=== PATIENT | female | born 1945 | race Caucasian/White ===

== ENCOUNTER → 2018-08-22 | Outpatient (CLI) | payer OTHER ==
--- NOTE | 2018-08-22 09:41 | US ---
EXAMINATION TYPE: US thyroid st tissue head/neck DATE OF EXAM: 08/22/2018 COMPARISON: NONE CLINICAL HISTORY: R59.0 ENLARGED LYMPH NODE. Pt states physician may have felt nodule/lump within nec k GLAND SIZE: Right Lobe: 4.5 x 1.3 x 1.6 cm Overall Parenchyma: homogenous Left Lobe: 5.0 x 1.2 x 1.1 cm Overall Parenchyma: homogeneous Isthmus Thickness: 0.2 cm Bilateral neck scanned, no evidence of lymphadenopathy. Thyroid gland is normal in size and fairly homogeneous in echotexture with diffuse vascularity and 2 3 mm colloid cysts identified in left thyroid lobe. IMPRESSION: Normal size homogeneous thyroid with few small left-sided nodules. No suspicious greater than 1 cm no dules or suspicious adjacent adenopathy identified.
--- NOTE | 2018-08-22 10:29 | BD ---
EXAMINATION TYPE: Axial Bone Density DATE OF EXAM: 08/22/2018 CLINICAL HISTORY: Disorder of bone per order. Height: 64.25 Weight: 165 FRAX RISK QUESTIONS: Alcohol (3 or more units per day): no Family History (Parent hip fracture): no Glucocorticoids (More than 3mos): no (Ex: prednisone, prednisolone, methylprednisolone, dexamethasone, and hydrocortisone). History of Fracture in Adulthood: yes, foot Secondary Osteoporosis: 1. Type 1 Diabetes: no 2. Hyperthyroidism: no 3. Menopause before 45: no 4. Malnutrition: no 5. Chronic liver disease: no Rheumatoid Arthritis: no Current Tobacco Use: no RISK FACTORS HISTORY OF: Family History of Osteoporosis: no Active: yes Diet low in dairy products/other sources of calcium: no Postmenopausal woman: yes Take estrogen and/or progesterone medications: no Lost more than 2 inches in height since high school: unsure, states may have been about 67 inches Frequent falls: no Poor Health: no Hyperparathyroidism: no Adrenal Insufficiency: no MEDICATIONS: Thyroid Medications: no Osteoporosis Medications: not now, stopped about 3 years Which medication: Fosamax How Long: unsure exactly Additional Medications: cholesterol med, calcium, D3 Additional History: EXAM MEASUREMENTS: Bone mineral densitometry was performed using the [employer] System. Bone mineral density as measured about the Lumbar spine is: ----- L1-L4(G/cm2): 1.044 T Score Values are as follows: ----- L2: -2.4 ----- L3: -1.5 ----- L4: 0.3 ----- L1-L4: -1.1 Bone mineral density not previously done at this facility; done elsewhere Bone mineral density about the R hip (g/cm2): 0.923 Bone mineral density about the L hip (g/cm2): 0.873 T Score values are as follows: -----R Neck: -0.8 -----L Neck: -1.2 -----R Total: -0.5 -----L Total: -1.0 Bone mineral density not previously done at this facility; done elsewhere IMPRESSION: Osteopenia (T Score between -2.5 and -1) overall in the low back and femoral neck level in the left h ip. There is slightly increased risk of fracture and the patient may be considered for treatment. Re-Screen 2-5 years. NOTE: T-SCORE=SD OF THE YOUNG ADULT MEAN.
--- NOTE | 2018-08-23 10:43 | MM ---
Reason for exam: screening (asymptomatic). History: Patient is postmenopausal. Family history of breast cancer in mother at age 70. Physical Findings: A clinical breast exam by your physician is recommended on an annual basis and results should be correlated with mammographic findings. MG Screening Mammo w CAD Bilateral CC and MLO view(s) were taken. No prior studies available for comparison. The breast tissue is heterogeneously dense. This may lower the sensitivity of mammography. Benign calcifications in the left breast. No significant changes when compared with prior studies. ASSESSMENT: Benign, BI-RAD 2 RECOMMENDATION: Routine screening mammogram of both breasts in 1 year.
== END ==
LOC: RADMAMWWP 07:15
PROVIDERS: ATTEND Family Medicine
DX: Z12.31 Encounter for screening mammogram for malignant neoplasm of breast (principal); M85.852 Other specified disorders of bone density and structure, left thigh; M85.88 Other specified disorders of bone density and structure, other site; R59.0 Localized enlarged lymph nodes
CPT/HCPCS: 76536; 77067; 77080

== ENCOUNTER → 2020-01-18 | Outpatient (CLI) | payer MEDICARE ==
--- NOTE | 2020-01-24 10:38 | MM ---
Reason for exam: screening (asymptomatic). Last mammogram was performed 1 year and 5 months ago. History: Patient is postmenopausal. Family history of breast cancer in mother at age 70. Physical Findings: A clinical breast exam by your physician is recommended on an annual basis and results should be correlated with mammographic findings. MG Screening Mammo w CAD Bilateral CC and MLO view(s) were taken. Prior study comparison: August 22, 2018, bilateral MG screening mammo w CAD. The breast tissue is heterogeneously dense. This may lower the sensitivity of mammography. No significant changes when compared with prior studies. ASSESSMENT: Benign, BI-RAD 2 RECOMMENDATION: Routine screening mammogram of both breasts in 1 year.
== END | disposition home or self-care (01) ==
LOC: RADMAMWWP 07:15
PROVIDERS: ATTEND Family Medicine
DX: Z12.31 Encounter for screening mammogram for malignant neoplasm of breast (principal)
CPT/HCPCS: 77067

== ENCOUNTER → 2020-07-03 | Outpatient (CLI) | payer MEDICARE ==
--- NOTE | 2020-07-03 15:53 | XR ---
EXAMINATION TYPE: XR knee complete LT DATE OF EXAM: 07/03/2020 COMPARISON: NONE HISTORY: Pain TECHNIQUE: Three views are submitted. FINDINGS: There is complete loss of joint space of the medial compartment. Severe narrowing of patellofemoral c ompartment. Hypertrophic spurring noted. No erosive changes. No acute fracture. No dislocation. IMPRESSION: 1. Severe osteoarthritis with complete loss of joint space involving the medial compartment.
== END | disposition home or self-care (01) ==
LOC: RADXRMAIN 15:28
PROVIDERS: ATTEND Family Medicine
DX: M17.12 Unilateral primary osteoarthritis, left knee (principal); M25.862 Other specified joint disorders, left knee

== ENCOUNTER → 2020-09-12 | Outpatient (CLI) | payer MEDICARE ==
--- NOTE | 2020-09-12 14:12 | XR ---
EXAMINATION TYPE: XR chest 2V DATE OF EXAM: 09/12/2020 COMPARISON: NONE TECHNIQUE: PA and lateral views submitted. HISTORY: Cough FINDINGS: The lungs are clear and there is no pneumothorax, pleural effusion, or focal pneumonia. Biapical pl eural thickening. Hypertrophic and degenerative change of the spine. Hyperinflation suggests COPD. IMPRESSION: 1. No acute process.
--- NOTE | 2020-09-12 18:00 | ECHOF ---
Referral Reason:R01.1 Murmur MEASUREMENTS -------- HEIGHT: 165.1 cm WEIGHT: 75.3 kg BP: IVSd: 0.8 cm (0.6 - 1.1) LVIDd: 4.1 cm (3.9 - 5.3) LVPWd: 1.0 cm (0.6 - 1.1) IVSs: 1.2 cm LVIDs: 3.1 cm LVPWs: 1.0 cm LAESV Index (A-L): 21.45 ml/m Ao Diam: 2.5 cm (2.0 - 3.7) AV Cusp: 1.5 cm (1.5 - 2.6) LA Diam: 4.2 cm (2.7 - 3.8) MV EXCURSION: 27.419 mm (> 18.000) MV EF SLOPE: 122 mm/s (70 - 150) EPSS: 0.8 cm MV E Murphy: 0.62 m/s MV DecT: 230 ms MV A Murphy: 0.82 m/s MV E/A Ratio: 0.75 RAP: 5.00 mmHg RVSP: 28.31 mmHg FINDINGS -------- Sinus rhythm. This was a technically good study. LV size, wall thickness and systolic function are normal, with an EF greater than 55%. The left lila tricular size is normal. The right ventricle is normal in size. Normal LA size by volume 22+/-6 ml/m2. The right atrial size is normal. Trace to mild aortic regurgitation. Mild mitral regurgitation is present. Mild tricuspid regurgitation present. Right ventricular systolic pressure is normal at < 35 mmHg. There is no pulmonic regurgitation present. The aortic root size is normal. There is no pericardial effusion. CONCLUSIONS -------- 1. LV size, wall thickness and systolic function are normal, with an EF greater than 55%. 2. The left ventricular size is normal. 3. The right ventricle is normal in size. 4. Normal LA size by volume 22+/-6 ml/m2. 5. The right atrial size is normal. 6. Trace to mild aortic regurgitation. 7. Mild mitral regurgitation is present. 8. Mild tricuspid regurgitation present. 9. The aortic root size is normal. 10. There is no pericardial effusion. CONSOLE ASSEMBLER: Genny Porter RDCS
== END ==
LOC: RADECHMAIN 13:39
PROVIDERS: ATTEND Family Medicine
DX: I08.3 Combined rheumatic disorders of mitral, aortic and tricuspid valves (principal)
CPT/HCPCS: 71046; 93306

== ENCOUNTER → 2020-10-22 | Outpatient (CLI) | payer MEDICARE ==
--- NOTE | 2020-10-23 06:35 | CT ---
EXAMINATION TYPE: CT chest w con DATE OF EXAM: 10/22/2020 COMPARISON: Chest x-ray September 12, 2020. HISTORY: COPD, abnormal x-ray. CT DLP: 310.6 mGycm. Automated Exposure Control for Dose Reduction was Utilized. TECHNIQUE: CT scan of the thorax is performed following with IV Contrast, patient injected with 100 mL of Isovue 300. FINDINGS: LUNGS: The lungs are grossly clear, there is no concerning parenchymal mass or nodule identified. T here is no pleural effusion or pneumothorax seen. The tracheobronchial tree is patent. Increased AP diameter may reflect product of mild underlying emphysematous change. No significant parenchymal fibr osis or scarring is present MEDIASTINUM: There are no greater than 1 cm hilar or mediastinal lymph nodes. No cardiomegaly or pe ricardial effusion is seen. Four vessel origin from aortic arch is seen which is normal variant. OTHER: Exaggerated thoracic kyphosis with moderate multilevel anterior and lateral spurring. IMPRESSION: No significant acute or chronic pulmonary process.
== END | disposition home or self-care (01) ==
LOC: RADCTMAIN 17:50
PROVIDERS: ATTEND Family Medicine
DX: J44.9 Chronic obstructive pulmonary disease, unspecified (principal)
CPT/HCPCS: 82565; 84520; 71260; 36415; Q9967

== ENCOUNTER → 2021-01-02 | Outpatient (CLI) | payer MEDICARE | END | disposition home or self-care (01) | LOC: LABPAT 13:39 | PROVIDERS: ATTEND Orthopaedic Surgery | DX: Z01.812 Encounter for preprocedural laboratory examination (principal); M17.12 Unilateral primary osteoarthritis, left knee; Z22.322 Carrier or suspected carrier of Methicillin resistant Staphylococcus aureus | CPT/HCPCS: 87070 ==

== ENCOUNTER 2021-01-20 08:39 | Day surgery (SDC) | payer MEDICARE ==
[2021-01-15 15:32] VITALS: BMI 28.8
--- NOTE | 2021-01-19 11:37 | HP ---
HISTORY AND PHYSICAL CHIEF COMPLAINT: Left knee pain. HISTORY OF PRESENT ILLNESS: The patient is a 75-year-old retired female who presents with left knee pain for the past several years, worsening recently. She is having medial pain along with stiffness and swelling. She has intermittent locking. She has tried medications in addition to an injection and previous exercise program with only partial temporary relief. She notes she is severely limited because of pain. PAST MEDICAL HISTORY: Significant for reflux disease, hypercholesterolemia. PAST SURGICAL HISTORY: Significant for tonsillectomy and section. CURRENT MEDICATIONS: Atorvastatin, Fosamax, ibuprofen, Prevacid, and turmeric. ALLERGIES: She has allergies to CLEOCIN. FAMILY HISTORY: Significant for renal disease. SOCIAL HISTORY: Significant for previous tobacco use. REVIEW OF SYSTEMS: Sixteen-point review of systems otherwise reviewed and is noncontributory. PHYSICAL EXAMINATION: On examination, the patient is approximately 5 foot 4 inches, 163 pounds of mesomorphic habitus. HEENT exam is nonfocal. Neck is supple. She has painless passive motion of left hip. Straight leg raise is negative. Active motion left knee -6 to 115 degrees of flexion. She has a moderate effusion. She is tender about the medial joint line. Collaterals are stable, Ubaldo is negative, Gerardo's is equivocal. She has genu varum alignment. Her distal neurovascular exam appears intact in the left lower extremity. X-rays of the left knee obtained in the office show severe osteoarthrosis with bone-on- bone changes. Subchondral sclerosis is noted. IMPRESSION: Left knee severe medial and patellofemoral compartment osteoarthrosis. RECOMMENDATIONS: I talked to the patient at length regarding her condition along with treatment options. At this point, she is quite limited because of pain related to her osteoarthrosis despite conservative measures. After thorough discussion, she opts to proceed with surgery. We will plan to proceed with left total knee arthroplasty. We will institute DVT prophylaxis postoperatively. Risks and benefits were discussed at length in layman's terms. MMODL / IJN: [id number] /
[~2021-01-20 08:39] MED LIST: ACETAMINOPHEN TAB 500 MG TAB PO PRN; DEXAMETHASONE SOD PHOSPHATE 4 MG/ML 1 ML VIAL IV ONE; HYDROmorphone 0.5 MG/0.5 ML SYRINGE IVP PRN; MELOXICAM 7.5 MG TAB PO PRN; ONDANSETRON 4 MG/2 ML VIAL IVP ONE; ROPIVACAINE/EPI/CLONIDINE/KET 50 ML SYRINGE MISCELLANE PRN; TRANEXAMIC ACID 1,000 MG in SODIUM CHLORIDE 0.9% 100 ML IVPB PRN
[2021-01-20] MEDS: LACTATED RINGERS 1,000 ML IV SCH ×2 (09:15→18:47)
[2021-01-20] MEDS ORDERED: MIDAZOLAM 2 MG/2 ML VIAL IVP ONE (09:32)
[2021-01-20] MEDS ORDERED: ROPIVACAINE 0.2%-NS ON-Q PUMP 1,090 MG, EMPTY PAIN BALL 1 EACH MISCELLANE PRN (09:56)
--- NOTE | 2021-01-20 09:59 | P.ANPRN ---
Procedure Note - Anesthesia - Nerve Block Performed Left Adductor Canal Infusion Time Out Performed: Yes Date of Procedure: 01/20/21 Procedure Start Time: 09:32 Procedure Stop Time: 09:42 Location of Patient: PreOp Indication: Acute Post-Operative Pain, Requested by Surgeon Sedation Type: Sedate with meaningful contact maintained Preparation: Sterile Prep, Sterile Dressing Position: Supine Catheter: Indwelling Needle Types: On-Q Needle Gauge: 18 Ultrasound used to visualize needle placement: Yes Ultrasound used to observe medication spread: Yes Injectate: 0.5% Ropivacaine (see comment for volume) (15 ml + decadron 4 mg) Blood Aspirated: No Pain Paresthesia on Injection Noted: No Resistance on Injection: Normal Image Stored and Saved: Yes Events: Uneventful and Well Tolerated Left iPack Single Date of Procedure: 01/20/21 Procedure Start Time: 09:44 Procedure Stop Time: 09:50 Location of Patient: PreOp Indication: Acute Post-Operative Pain, Requested by Surgeon Sedation Type: Sedate with meaningful contact maintained Preparation: Sterile Prep, Sterile Dressing Position: Right Lateral Catheter: None Needle Types: Pajunk Needle Gauge: 20, 21 Ultrasound used to visualize needle placement: Yes Ultrasound used to observe medication spread: Yes Injectate: 0.5% Ropivacaine (see comment for volume) (15 ml + decadron 4 mg) Blood Aspirated: No Pain Paresthesia on Injection Noted: No Resistance on Injection: Normal Image Stored and Saved: Yes Events: Uneventful and Well Tolerated
[2021-01-20] MEDS ORDERED: ePHEDrine SULFATE/0.9% NACL/PF 50 MG/5 ML SYRINGE IV ONE (10:32)
[2021-01-20] MEDS ORDERED: TRANEXAMIC ACID 1,000 MG/10 ML VIAL ONE (10:32)
[2021-01-20] MEDS ORDERED: fentaNYL (PF) 50 MCG/ML 2 ML AMP ONE (10:32)
[2021-01-20] MEDS ORDERED: DEXAMETHASONE SOD PHOSPHATE 4 MG/ML 1 ML VIAL ONE (10:32)
[2021-01-20] MEDS ORDERED: SODIUM CHLORIDE 0.9% 100 ML BAG ONE (10:32)
[2021-01-20] MEDS ORDERED: ROPIVACAINE 5 MG/ML 30 ML VIAL ONE (10:32)
[2021-01-20] MEDS ORDERED: PROPOFOL 10 MG/ML 20 ML VIAL IV ONE (10:32)
[2021-01-20] MEDS ORDERED: SODIUM CHLORIDE 0.9% (PF) 10 ML VIAL ONE (10:32)
[2021-01-20] MEDS ORDERED: MIDAZOLAM 2 MG/2 ML VIAL ONE (10:32)
[2021-01-20] MEDS ORDERED: ceFAZolin 1,000 MG in SODIUM CHLORIDE 0.9% 1,000 ML IRRIGATION ONE (11:06)
[2021-01-20] MEDS ORDERED: LACTATED RINGERS 1,000 ML IV ONE ×3 (12:02→13:53)
[2021-01-20] MEDS ORDERED: HYDROcodone/APAP 5-325MG 1 EACH TAB PO PRN (12:08)
[2021-01-20] MEDS ORDERED: NALOXONE 0.4 MG/ML 1 ML VIAL IV PRN (12:08)
--- NOTE | 2021-01-20 12:36 | P.OP ---
Date of Procedure: 01/20/21 Preoperative Diagnosis: Left knee severe tricompartmental osteoarthrosis Postoperative Diagnosis: Same Procedure(s) Performed: Left total knee arthroplastycementedposterior stabilized Implants: Depuy Attune size 6 neuro cemented femoral component, size 5 cemented tibial component, 10 mm articular surface, 32 mm cemented patellar component. This is a posterior stabilized implant. Anesthesia: regional, spinal Surgeon: Sukhjinder Shah Basic Combatant Swimmer #1: Hernando Wagner Estimated Blood Loss (ml): 50 Pathology: other (Bone fragments) Condition: stable Disposition: PACU Indications for Procedure: The patient's a 75-year-old female who presents with progressive left knee pain secondary to osteoarthrosis despite conservative measures. He discussion of the risks and benefits of operative intervention versus continued conservative shreya sures with patient. Proceed with surgery. Operative risks to include infection, neurovascular injury, development of blood clots, possible fracture, possible component loosening, possible instability and need for subsequent procedures was discussed. Informed consent was obtained. Operative Findings: As below Description of Procedure: The patient was brought to the operating room, and after induction of spinal anesthesia the left lower extremity was prepped and draped in a normal fashion. The tourniquet was inflated to 270 mm marker. A longitudinal incision extending 3 finger breaths above the superior pole of patella extending to the medial aspect the tibial tubercle was then made. The skin and subcutaneous tissues were divided sharply. Electrocautery was used for hemostasis. A medial parapatellar arthrotomy was performed. The medial soft tissues to include the superficial and deep portions of the medial collateral ligament were elevated subperiosteally. The patella was everted. A portion of the retropatellar fat pad was excised sharply. The anterior cruciate ligament was sacrificed. Blunt retractors were placed. A starting hole was made in the distal femur 1 cm anterior to the posterior cruciate ligament origin. An intramedullary femoral guide was then inserted planning on 5 valgus distal cut with 9 mm distal resection. The cutting block was pinned in place. The distal cut was then made. The posterior referencing sizing guide was utilized. I felt size 6 narrow was most appropriate. 3 of external rotation was built into the system and verified off the trans-epicondylar axis and the posterior condyles. The cutting block was pinned in place. The anterior, posterior, and chamfer cuts then made. Bone fragments were removed. The intercondylar guide was placed and the notch cut was made with a sagittal saw. The bone block was removed in one fragment. The trial component was then placed. There is good anterior to posterior and medial to lateral fit. The distal peg holes were drilled. The trial component was removed. Attention was then paid towards preparing the proximal femur. An extra medullary guide was utilized in line with the tibial shaft and second metatarsal distally. I planned on 2 mm resection from the medial compartment. The cutting block was pinned in place. The proximal tibial cut was then made. The bone was removed in one fragment. The remnants of the medial and lateral menisci were excised at the capsular junction with electrocautery. The tibia sized most appropriately at size 5. The trial femoral and tibial components were placed along with a 10 mm articular surface. I was able to obtain full flexion and extension with internal and external ro tation. After several flexion and extension cycles, the tibial rotation was marked with electrocautery line with the medial one third of the tibial tubercle. Attention was then paid towards preparing the patella. A patella reamer was utilized taking stem to 14 mm of bone stock. A good flush cut was made. The patella sized most appropriately 32 mm. The peg holes were drilled. The trial components placed. I had good patellofemoral tracking with no hands technique. The trial components were then removed. The tibia was prepared in the appropriate rotation with appropriate drill and keel punch. The posterior osteophytes were removed with a curved osteotome. The flexion and extension gaps were checked and felt to be symmetric at 10 mm. A trial components were then removed. The bony surfaces were prepared with pulsatile lavage and dried. The tibial component was then cemented place was fully seated. Excess cement was removed. The femoral component cemented place and was fully seated. Excess cement was removed. The trial 10 mm articular surface was placed and the knee was put in full extension. The patella component was cemented place. After the cement had sufficiently hardened, the knee was again taken through a range of motion. Again I was able to obtain full flexion and extension with varus and valgus stress. The trial 10 mm articular surface was removed and the final one inserted. This was fully seated. Care was taken to avoid any soft tissue interposition. Pulsatile lavage was again utilized. The medial parapatellar arthrotomy was closed with #2 Ethibond suture. The tourniquet was deflated with approximately 60 minutes total tourniquet time. Final hemostasis was obtained with the cautery. There was minimal bleeding therefore a deep drain was not placed. The subcutaneous tissues were reapproximated with interrupted 2-0 Vicryl sutures. The skin was reapproximated with 3-0 subcuticular strata fix suture. Skin tape and adhesive was applied. A sterile dressing was applied. The patient was awoken from sedation and transferred to recovery room in good condition. Blood loss was estimated at 50 mL. No complications were incurred. Sponge and needle counts were correct at the end of the case. Hernando XIAO assisted during the major components of this case to include exposure, bone resection, implantation, and closure.
--- NOTE | 2021-01-20 13:15 | XR ---
EXAMINATION TYPE: XR knee limited LT DATE OF EXAM: 01/20/2021 COMPARISON: NONE TECHNIQUE: Two views submitted HISTORY: Post op FINDINGS: There is a prosthetic knee in near anatomic alignment. There is soft tissue edema and emphysema. IMPRESSION: 1. Postoperative change. Appears in near-anatomic alignment
[2021-01-20] MEDS ORDERED: HYDROmorphone 0.5 MG/0.5 ML SYRINGE IVP ONE (13:18)
[2021-01-20] MEDS: HYDROcodone/APAP 5-325MG 1 EACH TAB PO PRN (14:12)
[2021-01-20 14:48] VITALS: RESP 16
--- NOTE | 2021-01-20 15:54 | P.CONS ---
History of Present Illness - Reason for Consult Consult date: 01/20/21 COPD Requesting physician: Sukhjinder Shah - Chief Complaint knee pain - History of Present Illness Patient is a 75-year-old female with a past medical history of COPD, GERD and dyslipidemia who presented for left total knee arthroplasty. She tolerated the procedure without any immediate postoperative complications. Patinet seen and examined at bedside. Pain is well controlled, no post op nausea/vomiting, no chest pain, not light headed or dizzy. Has been having knee pain for the last 5-6 years. Has tried therapy and injections. Injections used to help but are not lasting long anymore and she therefore decided to proceed with surgical intervention. No recent cough, cold, fever, flu. Pertinent positives and negatives as discussed in HPI, a complete review of systems was performed and all other systems are negative. General: non toxic, no distress, appears at stated age Derm: warm, dry Head: atraumatic, normocephalic, symmetric Eyes: EOMI, no lid lag, anicteric sclera, pupils equal round reactive to light ENT: Nose and ears atraumatic, no thrush, no pharyngeal erythema Neck: No thyromegaly, no cervical lymphadenopathy, trachea midline, supple Mouth: no lip lesion, mucus membranes moist Cardiovascular: S1S2 reg, no murmur, positive posterior tibial pulse bilateral, no edema, capillary refill less than 2 seconds Lungs: clear to ascultation bilateral, no ronchi, no rales, no wheeze, no accessory muscle use Abdominal: soft, nontender to palpation, no guarding, no appreciable organomegaly, normal bowel sounds Ext: no gross muscle atrophy, muscle strength muscle strength 5 out of 5 in all 4 extremities, no contractures Neuro: CN II-XI grossly intact, light touch intact all 4 extremities, finger to nose within normal limits, Psych: Alert, oriented, appropriate affect 75-year-old female status post left total knee arthroplasty. Management per orthopedic services. GERD -PPI Dyslipidemia -Statin Mild COPD without exacerbation -When necessary bronchodilators Thank you for allowing us to participate in the care of this pleasant patient. Do not hesitate to contact us with questions. Someone can be reached from the [facility] hospitalist group all hours of the day at [phone] or via [employer]. Past Medical History Past Medical History: Asthma, COPD, GERD/Reflux, Hyperlipidemia, Osteoarthritis (OA), Skin Disorder Additional Past Medical History / Comment(s): hx migraines, occ irregular heartbeat, has asthma issues in the fall, occ gall bladder issues related to diet, eczema, History of Any Multi-Drug Resistant Organisms: None Reported Past Surgical History: Section, Tonsillectomy Additional Past Surgical History / Comment(s): lion cataracts Past Anesthesia/Blood Transfusion Reactions: No Reported Reaction Past Psychological History: Depression Smoking Status: Former smoker Past Alcohol Use History: Occasional Additional Past Alcohol Use History / Comment(s): quit smoking 40 yrs ago, smoked for 10 yrs Past Drug Use History: None Reported - Past Family History Mother Family Medical History: Cancer Daughter(s) Family Medical History: Cancer Medications and Allergies Home Medications Medication Instructions Recorded Confirmed Type Atorvastatin [Lipitor] 40 mg PO DAILY 01/15/21 01/20/21 History Cholecalciferol [Vitamin D3 (25 100 mcg PO DAILY 01/15/21 01/15/21 History Mcg = 1000 Iu)] Ibuprofen 800 mg PO TID PRN 01/15/21 01/15/21 History Lansoprazole [Prevacid] 30 mg PO DAILY 01/15/21 01/20/21 History Magnesium 500 mg PO BID 01/15/21 01/15/21 History Sertraline HCl [Zoloft] 100 mg PO DAILY 01/15/21 01/20/21 History Vitamin B Complex 1 each PO DAILY 01/15/21 01/15/21 History Allergies Allergy/AdvReac Type Severity Reaction Status Date / Time aspartame Allergy "heart Verified 01/20/21 09:30 [From Nutrasweet Aspartame] skips a beat" clindamycin [From Cleocin] Allergy Rash/Hives Verified 01/20/21 09:30 Physical Exam Osteopathic Statement: *. No significant issues noted on an osteopathic structural exam other than those noted in the History and Physical/Consult. Vitals: Vital Signs Temp Pulse Pulse Resp BP Pulse Ox 01/20/21 14:47 97.7 F 87 16 104/66 94 L 01/20/21 13:32 76 18 101/57 91 L 01/20/21 13:18 70 16 104/56 96 01/20/21 13:17 78 18 104/56 95 01/20/21 13:03 68 16 121/56 95 01/20/21 13:02 64 18 121/64 94 L 01/20/21 12:48 77 16 110/53 95 01/20/21 12:47 60 18 107/55 97 01/20/21 12:33 97.8 F 77 16 114/55 98 01/20/21 10:00 52 L 17 128/59 100 01/20/21 09:10 97.0 F L 75 17 125/62 97 Intake and Output 01/20/21 01/20/21 01/20/21 06:59 14:59 22:59 Intake Total 2050 Output Total 50 Balance 2000 Intake: IV 2050 Output: Estimated Blood Loss 50 Other: Weight 74.8 kg
[2021-01-20] MEDS ORDERED: ALBUTEROL NEBULIZED 2.5 MG/3 ML INHALATION PRN (15:55)
[2021-01-20] MEDS: ENOXAPARIN 30 MG/0.3 ML SYRINGE SQ SCH (20:09)
[2021-01-20] MEDS ORDERED: SENNOSIDES-DOCUSATE SODIUM 1 EACH TAB PO SCH (21:00)
--- NOTE | 2021-01-21 06:48 | P.PN ---
Progress Note - Text Progress Note Date: 01/21/21 Pt resting comfortably w/o complaints. Minimal pain at rest with moderate pain after walking. Left adductor catheter @ 8 ml/hr. Site clean and dry. A/P POD#1 s/p L TKA with adductor catheter & iPack. - continue multimodal
[2021-01-21] MEDS ORDERED: PANTOPRAZOLE 40 MG TABLET PO SCH (07:30)
[2021-01-21 07:37] VITALS: BP 94/58; PULSE 68; TEMP 98.4
[2021-01-21] MEDS: HYDROcodone/APAP 5-325MG 1 EACH TAB PO PRN (07:58)
--- NOTE | 2021-01-21 08:31 | P.PN ---
Subjective Progress Note Date: 01/21/21 Principal diagnosis: knee pain Patient is a 75-year-old female with a past medical history of COPD, GERD and dyslipidemia who presented for left total knee arthroplasty. She tolerated the procedure without any immediate postoperative complications. Patient seen and examined at bedside. Pain is well controlled. No nausea, vomiting, chest pain, or shortness of breath. Is having some pain in her knee when she is up and walking. We discussed the importance of maintaining her aspirin regimen on discharge to prevent postoperative DVT. She is aware to call surgery should she develop any worsening gastritis. General: non toxic, no distress, appears at stated age Derm: warm, dry Head: atraumatic, normocephalic, symmetric Eyes: EOMI, no lid lag, anicteric sclera Mouth: no lip lesion, mucus membranes moist Cardiovascular: S1S2 reg, no murmur, positive posterior tibial pulse bilateral, Lungs: CTA bilateral, no rhonchi, no rales , no accessory muscle use Abdominal: soft, nontender to palpation, no guarding, no appreciable organomegaly Ext: no gross muscle atrophy, trace edema, on Q ball in place, no contractures Neuro: CN II-XI grossly intact, no focal neuro deficits Psych: Alert, oriented, appropriate affect 75-year-old female status post left total knee arthroplasty. Management per orthopedic services. GERD -PPI Dyslipidemia -Statin Mild COPD without exacerbation -When necessary bronchodilators Patient medically optimized for discharge to the discretion of orthopedic surgery. She is aware that she should not stop her aspirin even if her acid reflux flares and she should contact orthopedics for further directions. Thank you for allowing us to participate in the care of this pleasant patient. Do not hesitate to contact us with questions. Someone can be reached from the [facility] hospitalist group all hours of the day at [phone] or via General Specific. Objective - Vital Signs Vital signs: Vital Signs Temp 98.4 F 01/21/21 07:36 Pulse 68 01/21/21 07:36 Resp 16 01/21/21 07:36 BP 94/58 01/21/21 07:36 Pulse Ox 95 01/21/21 07:36 Intake & Output 01/20/21 01/21/21 01/21/21 18:59 06:59 18:59 Intake Total 2050 Output Total 50 Balance 2000 Weight 74.8 kg Intake: IV 2050 Output: Estimated Blood Loss 50 Other: Voiding Method Toilet # Voids 2
[2021-01-21] MEDS ORDERED: CHOLECALCIFEROL 25 MCG (1000 IU) TABLET PO SCH (09:00)
[2021-01-21] MEDS ORDERED: ATORVASTATIN 40 MG TAB PO SCH (09:00)
[2021-01-21] MEDS ORDERED: SERTRALINE 100 MG TAB PO SCH (09:00)
--- NOTE | 2021-01-21 09:57 | P.PN ---
Subjective Progress Note Date: 01/21/21 Principal diagnosis: Status post left total knee arthroplasty Patient was examined today at bedside, resting in her hospital bed. She is doing very well at this time. She's been up ambulating in her room. She's been to the bathroom a few different occasions, no difficulty with urination. She is eager to work with physical therapy staff today. Her pain is well-controlled at this time. Currently denies any headaches, lightheadedness, chest pain or shortness of breath. Objective - Vital Signs Vital signs: Vital Signs Temp 98.4 F 01/21/21 07:36 Pulse 68 01/21/21 07:36 Resp 16 01/21/21 07:36 BP 94/58 01/21/21 07:36 Pulse Ox 95 01/21/21 07:36 Intake & Output 01/20/21 01/21/21 01/21/21 18:59 06:59 18:59 Intake Total 2050 Output Total 50 Balance 2000 Weight 74.8 kg Intake: IV 2050 Output: Estimated Blood Loss 50 Other: Voiding Method Toilet # Voids 2 - Exam Left lower extremity: Incision is clean, dry, and intact. The exofin fusion tape is in good condition. There is minimal soft tissue swelling and ecchymosis surrounding the medial and lateral aspects of the incision. Calf is soft, no tenderness with palpation. Plantar flexion, dorsiflexion, EHL, FHL are intact. Sensory exam to light touch throughout the extremity is intact, dorsal pedis pulses 2+. Assessment and Plan Assessment: Postoperative day 1 status post left total knee arthroplasty Plan: Pain control, plan for discharge home on oral medication DVT prophylaxis, Eliquis 2.5 mg twice a day for 2 weeks Wound care instructions were discussed Home physical therapy and nursing after discharge Medical recommendations Discharge planning: Plan for discharge home today Time with Patient: Less than 30
--- NOTE | 2021-01-21 10:04 | P.DS ---
Providers Date of admission: 01/20/2021 Expected date of discharge: 01/21/21 Attending physician: Sukhjinder Shah Consults: 01/20/21 12:12 Consult Physician Routine Consulting Provider: Katrina Mendieta Consult Reason/Comments: Medical Management; s/p left total knee arthroplasty Do you want consulting provider notified?: Yes Primary care physician: Maria E Quesada Hospital Course: Date of admission: 01/20/2021 Date of discharge: 01/21/2021 Admission diagnosis: Status post left total knee arthroplasty Discharge diagnosis: Same Attending physician: Dr. Shah Surgical procedures: Left total knee arthroplasty Brief history: Patient is a 75-year-old female with a history of progressive left knee osteoarthritis. At this point patient has failed conservative treatment measures and has opted to proceed with a elective left total knee arthroplasty. Hospital course: Details of patient's surgery can be found in operative report. Patient tolerated the procedure well and was subsequently transported to orthopedic floor. Patient's orthopeidc and medical care was provided daily. Patient had daily laboratory tests performed for evaluation of overall blood counts. Patient had daily physical therapy to include strengthening range of motion as well as education with walker ambulation. Patient was treated with Lovenox for their postoperative DVT prophylaxis during their inpatient stay. Patient was noted to have a relatively uneventful postoperative course. Patient reported satisfactory pain control with oral pain medications by postoperative day 0. Patient showed satisfactory progress with physical therapy. Patient moved steadily through the program and had no difficulty meeting the goals by postoperative day 1. Given patient's otherwise satisfactory course and having met physical therapy goals, plan is to discharge patient home on postoperative day 1. Discharge condition/disposition: Patient will be discharged home in stable condition. Discharge medications: Instructions are given on resumption of patient's normal daily medications per primary care recommendation, in addition patient will be prescribed Conesus 5 mg/325 mg, Colace 100 mg, Eliquis 2.5mg. Discharge instructions: 1. Wound care and infection precautions, keep incision dry and covered while showering, no lotions, creams, moisturizers. No soaking, tubs, pools, hottubs. Do not scrub over the incision. 2. Weight-bear [as tolerated] with walker / cane until follow-up. 3. Ice and elevate when necessary. Do not exceed 20 minutes per hour with ice pack. 4. Utilize compression sleeve until seen at first follow up appointment. 5. Visiting nursing care. 6. Home physical therapy including home CPM. 7. Pain meds and anticoagulants per prescription. 8. Pain medication has potential to cause constipation. Increase oral fluid and fiber intake. Contact primary care provider if you have not had a bowel movement within 48 hours after discharge 9. No anti-inflammatory medication until discussed at first post operative visit, this including Motrin, Aleve, Mobic, Diclofenac 10. Follow up in office at 2 weeks postop with Jesse Kong PA-C/Hernando Amato 11. Follow up with your primary care doctor 7-10 days after discharge. 12. Contact [facility] with any questions, . Procedures: Left total knee arthroplasty Patient Condition at Discharge: Good Plan - Discharge Summary Discharge Rx Participant: Yes New Discharge Prescriptions: New Docusate [Colace] 100 mg PO DAILY #30 capsule Apixaban [Eliquis] 2.5 mg PO BID #60 tab HYDROcodone/APAP 5-325MG [Conesus 5-325] 1 - 2 tab PO Q6HR PRN #42 tab PRN Reason: Pain Continue Magnesium 500 mg PO BID Cholecalciferol [Vitamin D3 (25 Mcg = 1000 Iu)] 100 mcg PO DAILY Sertraline HCl [Zoloft] 100 mg PO DAILY Atorvastatin [Lipitor] 40 mg PO DAILY Lansoprazole [Prevacid] 30 mg PO DAILY Vitamin B Complex 1 each PO DAILY No Action Ibuprofen 800 mg PO TID PRN PRN Reason: Pain Discharge Medication List Atorvastatin [Lipitor] 40 mg PO DAILY 01/15/21 [History] Cholecalciferol [Vitamin D3 (25 Mcg = 1000 Iu)] 100 mcg PO DAILY 01/15/21 [History] Ibuprofen 800 mg PO TID PRN 01/15/21 [History] Lansoprazole [Prevacid] 30 mg PO DAILY 01/15/21 [History] Magnesium 500 mg PO BID 01/15/21 [History] Sertraline HCl [Zoloft] 100 mg PO DAILY 01/15/21 [History] Vitamin B Complex 1 each PO DAILY 01/15/21 [History] Apixaban [Eliquis] 2.5 mg PO BID #60 tab 01/21/21 [Rx] Docusate [Colace] 100 mg PO DAILY #30 capsule 01/21/21 [Rx] HYDROcodone/APAP 5-325MG [Conesus 5-325] 1 - 2 tab PO Q6HR PRN #42 tab 01/21/21 [Rx] Follow up Appointment(s)/Referral(s): [place] Felecia,Equipment [NON-STAFF] - (Please call [facility] once home to arrange delivery of Continuous Passive Motion (CPM) machine.) Maria E Quesada MD [Primary Care Provider] - 1 Week [facility] Visiting Nurse, [NON-STAFF] - ([facility] will contact you to set up your first visit for home nursing/physical therapy on 01/22/21.) Carlos Alberto Kong PAC [PHYSICIAN LOOM STOP CHECKER] - 2 Weeks Activity/Diet/Wound Care/Special Instructions: Orthopedic Discharge Instructions: 1. Wound care and infection precautions, keep incision dry and covered while showering, no lotions, creams, moisturizers. No soaking, pools, hot tubs. Do not scrub over incision. 2. Weight-bear as tolerated with walker / cane until follow-up. 3. Ice and elevate when necessary. Do not exceed 20 minutes per hour with ice pack. 4. Utilize compression sleeve until seen at first follow up appointment. 5. Pain meds and anticoagulants per prescription. 6. Pain medication has potential to cause constipation. Increase oral fluid and fiber intake. Contact primary care provider if you have not had a bowel movement within 48 hours after discharge. 7. No anti-inflammatory medication until discussed at first post operative visit, this including Motrin, Aleve, Mobic, Diclofenac. 8. Follow up in office at 2 weeks postop with Jesse Kong PA-C/Hernando Wagner PA-C 9. Follow up with your primary care doctor 7-10 days after discharge. 10. Contact [facility] with any questions, . Discharge Disposition: HOME WITH HOME HEALTH SERVICES
[2021-01-21] MEDS: ENOXAPARIN 30 MG/0.3 ML SYRINGE SQ SCH (10:10)
== END 2021-01-21 12:14 | disposition home health service (06) ==
LOC: OR 08:39 → 4SSUR 12:55 → OR 01-21 12:14
PROVIDERS: ATTEND Orthopaedic Surgery
DX: M17.12 Unilateral primary osteoarthritis, left knee (principal); K21.9 Gastro-esophageal reflux disease without esophagitis; E78.00 Pure hypercholesterolemia, unspecified; Z79.899 Other long term (current) drug therapy; Z88.8 Allergy status to other drugs, medicaments and biological substances; J44.9 Chronic obstructive pulmonary disease, unspecified; E78.5 Hyperlipidemia, unspecified; Z88.1 Allergy status to other antibiotic agents; Z91.02 Food additives allergy status
CPT/HCPCS: 97161; 64999; 64448; 76942; 88300; 73560; 27447; C1776; C1713; J2250; J1100; J0690 ×2; J2405; J3010; J1650 ×2; J2795 ×2; J2704; J1170

== ENCOUNTER → 2021-10-16 | Outpatient (CLI) | payer MEDICARE ==
[2021-10-16 19:07] LABS: ALT 17 U/L (8-44); AST 18 U/L (13-35); African American GFR (CKD) 101.6 (60.0-200.0); Albumin 4.6 g/dL (3.8-4.9); Albumin/Globulin Ratio 2.04 (1.60-3.17); Alkaline Phosphatase 82 U/L (41-126); BUN/Creat Ratio 25.04 Ratio (12.00-20.00); Blood Urea Nitrogen 16.5 mg/dL (9.0-27.0); Calcium 10.3 mg/dL (8.7-10.3); Carbon Dioxide 23.4 mmol/L (20.0-27.5); Chloride 104 mmol/L (96-109); Chol/HDL Ratio 3.11 Ratio; Creatine Kinase 32 U/L (26-186); Globulin 2.3 g/dL (1.6-3.3); Glucose 109 mg/dL (70-110); LDL Cholesterol,Calculated 125.1 mg/dL (0.0-131.0); Non-African American GFR(CKD) 87.7 (60.0-200.0); Potassium 4.4 mmol/L (3.5-5.5); Sodium 141 mmol/L (135-145); Total Protein 6.9 g/dL (6.2-8.2)
[2021-10-16 21:00] LABS: Basophils # (A) 0.04 X 10*3/uL (0.00-0.10); Basophils % (A) 0.6 %; Eosinophils # (A) 0.08 X 10*3/uL (0.04-0.35); Eosinophils % (A) 1.1 %; HCT 39.7 % (37.2-46.3); HGB 12.7 g/dL (12.0-15.0); Immature Grans, Automated 0.4 %; Lymphocytes # (A) 1.96 X 10*3/uL (0.90-5.00); Lymphocytes % (A) 27.4 %; MCH 30.9 pg (27.0-32.0); MCV 96.6 fL (80.0-97.0); Mean Platelet Volume 10.3 fL (9.5-12.2); Monocytes # (A) 0.37 X 10*3/uL (0.20-1.00); Monocytes % (A) 5.2 %; NRBC Per 100 WBC 0 /100 WBCS (0.0-0.0); Neutrophils # (A) 4.67 X 10*3/uL (1.80-7.70); Neutrophils % (A) 65.3 %; Platelet Count 340 X 10*3/uL (140-440); RBC 4.11 X 10*6/uL (4.10-5.20); RDW 13.5 % (11.5-14.5); WBC 7.15 X 10*3/uL (4.50-10.00)
--- NOTE | 2021-10-19 12:03 | MM ---
Reason for exam: screening (asymptomatic). Last mammogram was performed 1 year and 9 months ago. History: Patient is postmenopausal. Family history of breast cancer in daughter at age 49 and breast cancer in mother at age 70. Physical Findings: A clinical breast exam by your physician is recommended on an annual basis and results should be correlated with mammographic findings. MG Screening Mammo w CAD Bilateral CC and MLO view(s) were taken. Prior study comparison: January 18, 2020, bilateral MG screening mammo w CAD. August 22, 2018, bilateral MG screening mammo w CAD. The breast tissue is heterogeneously dense. This may lower the sensitivity of mammography. Stable benign calcifications left breast. There is no discrete abnormality. No significant changes when compared with prior studies. ASSESSMENT: Benign, BI-RAD 2 RECOMMENDATION: Routine screening mammogram of both breasts in 1 year.
== END | disposition home or self-care (01) ==
LOC: RADMAMWWP 10:17
PROVIDERS: ATTEND Family Medicine
DX: Z12.31 Encounter for screening mammogram for malignant neoplasm of breast (principal); E78.5 Hyperlipidemia, unspecified; Z78.0 Asymptomatic menopausal state; Z80.3 Family history of malignant neoplasm of breast
CPT/HCPCS: 77067; 80053; 80061; 82550; 83036; 85025

== ENCOUNTER → 2022-10-20 | Outpatient (CLI) | payer MEDICARE ==
--- NOTE | 2022-10-21 19:58 | MM ---
Reason for Exam: Screening (asymptomatic). Last screening mammogram was performed 12 month(s) ago. Patient History: Menarche at age 15. First Full-Term at age 24. Postmenopausal. Daughter had breast cancer, age 49. Mother had breast cancer, age 70. Risk Values: Vicky 5 year model risk: 7.1%. NCI Lifetime model risk: 15.7%. Prior Study Comparison: 08/22/2018 Bilateral Screening Mammogram, [facility]. 01/18/2020 Bilateral Screening Mammogram, [facility]. 10/16/2021 Bilateral Screening Mammogram, [facility]. Tissue Density: The breast tissue is heterogeneously dense. This may lower the sensitivity of mammography. Findings: Analyzed By CAD. There is no suspicious group of microcalcifications or new suspicious mass in either breast. Overall Assessment: Negative, BI-RAD 1 Management: Screening Mammogram of both breasts in 1 year. 1. Note that per NCCN guidelines, a five-year risk assessment greater than 1.67% is used to assess eligibility for a risk reducing agent. 2. Patient should continue monthly self breast exams. 3. This exam should not preclude additional follow-up of suspicious palpable abnormalities. Electronically signed and approved by: Robe Kwon M.D. Radiologist
== END | disposition home or self-care (01) ==
LOC: RADMAMWWP 15:04
PROVIDERS: ATTEND Family Medicine
DX: Z12.31 Encounter for screening mammogram for malignant neoplasm of breast (principal); Z78.0 Asymptomatic menopausal state; Z80.3 Family history of malignant neoplasm of breast
CPT/HCPCS: 77063; 77067

== ENCOUNTER → 2022-10-21 | Outpatient (CLI) | payer MEDICARE ==
[2022-10-21 19:29] LABS: Basophils # (A) 0.06 X 10*3/uL (0.00-0.10); Basophils % (A) 0.8 %; Eosinophils # (A) 0.11 X 10*3/uL (0.04-0.35); Eosinophils % (A) 1.5 %; HCT 43.8 % (37.2-46.3); HGB 13.7 g/dL (12.0-15.0); Immature Grans, Automated 0.4 %; Lymphocytes # (A) 2.19 X 10*3/uL (0.90-5.00); Lymphocytes % (A) 29.9 %; MCH 31.2 pg (27.0-32.0); MCHC 31.3 g/dL (32.0-37.0); MCV 99.8 fL (80.0-97.0); Mean Platelet Volume 10.2 fL (9.5-12.2); Monocytes # (A) 0.41 X 10*3/uL (0.20-1.00); Monocytes % (A) 5.6 %; NRBC Per 100 WBC 0 /100 WBCS (0.0-0.0); Neutrophils # (A) 4.53 X 10*3/uL (1.80-7.70); Neutrophils % (A) 61.8 %; Platelet Count 356 X 10*3/uL (140-440); RBC 4.39 X 10*6/uL (4.10-5.20); RDW 13.2 % (11.5-14.5); WBC 7.33 X 10*3/uL (4.50-10.00)
[2022-10-21 20:28] LABS: ALT 19 U/L (8-44); AST 19 U/L (13-35); Albumin 4.9 g/dL (3.8-4.9); Albumin/Globulin Ratio 2.04 (1.60-3.17); Alkaline Phosphatase 89 U/L (41-126); BUN/Creat Ratio 18.44 Ratio (12.00-20.00); Blood Urea Nitrogen 16.6 mg/dL (9.0-27.0); Calcium 10.1 mg/dL (8.7-10.3); Carbon Dioxide 26.9 mmol/L (20.0-27.5); Chloride 99 mmol/L (96-109); Chol/HDL Ratio 3.07 Ratio; Globulin 2.4 g/dL (1.6-3.3); Glucose 111 mg/dL (70-110); Potassium 4.5 mmol/L (3.5-5.5); Sodium 132 mmol/L (135-145); Total Protein 7.3 g/dL (6.2-8.2)
== END | disposition home or self-care (01) ==
LOC: LABWHC1 08:44
PROVIDERS: ATTEND Family Medicine
DX: E78.5 Hyperlipidemia, unspecified (principal)
CPT/HCPCS: 36415; 80053; 80061; 83036; 85025

== ENCOUNTER → 2022-11-26 | Outpatient (CLI) | payer MEDICARE ==
[~2022-11-26] MED LIST changes: -ACETAMINOPHEN TAB 500 MG TAB PO PRN; +DENOSUMAB 60 MG/ML 1 ML SYRINGE SQ NR; -DEXAMETHASONE SOD PHOSPHATE 4 MG/ML 1 ML VIAL IV ONE; -HYDROmorphone 0.5 MG/0.5 ML SYRINGE IVP PRN; -MELOXICAM 7.5 MG TAB PO PRN; -ONDANSETRON 4 MG/2 ML VIAL IVP ONE; -ROPIVACAINE/EPI/CLONIDINE/KET 50 ML SYRINGE MISCELLANE PRN; -TRANEXAMIC ACID 1,000 MG in SODIUM CHLORIDE 0.9% 100 ML IVPB PRN
[2022-11-26 14:27] VITALS: BP 122/76; PULSE 75; RESP 15; TEMP 98.1
== END ==
LOC: PROCWHC3 14:07
PROVIDERS: ATTEND Family Medicine
DX: M81.0 Age-related osteoporosis without current pathological fracture (principal)
CPT/HCPCS: 96372; J0897

== ENCOUNTER → 2023-05-30 | Outpatient (CLI) | payer MEDICARE ==
[2023-05-30 13:12] VITALS: BP 122/80; PULSE 72; RESP 16; TEMP 97.9
== END ==
LOC: PROCWHC3 12:44
PROVIDERS: ATTEND Family Medicine
DX: M81.0 Age-related osteoporosis without current pathological fracture (principal)
CPT/HCPCS: 96372; J0897

== ENCOUNTER → 2024-01-23 | Outpatient (CLI) | payer MEDICARE ==
[2024-01-23] MEDS: DENOSUMAB 60 MG/ML 1 ML SYRINGE SQ ONE (13:05)
[2024-01-23 13:07] VITALS: BP 105/73; PULSE 73; RESP 16; TEMP 97.3
== END ==
LOC: PROCWHC3 12:49
PROVIDERS: ATTEND Family Medicine
DX: M81.0 Age-related osteoporosis without current pathological fracture (principal)
CPT/HCPCS: 96372; J0897

== ENCOUNTER → 2024-07-27 | Outpatient (CLI) | payer MEDICARE ==
[2024-07-27 12:18] VITALS: BP 129/67; PULSE 61; RESP 16; TEMP 98.1
[2024-07-27] MEDS: DENOSUMAB 60 MG/ML 1 ML SYRINGE SQ NR (12:18)
== END ==
LOC: PROCWHC3 12:01
PROVIDERS: ATTEND Family Medicine
DX: M81.0 Age-related osteoporosis without current pathological fracture (principal)
CPT/HCPCS: 96372; J0897